=== PATIENT | female | born 1940 | race Caucasian/White ===

== ENCOUNTER 2018-08-29 20:40 | Emergency (ER) | payer MEDICARE, BC ==
[~2018-08-29] VITALS: Ht 160 cm; Wt 60.8 kg
[~2018-08-29 20:40] MED LIST: CALCIUM500 M3 PO; CARAFATE1 GM/10 ML PO; VIT B12 10001000 MCG GT; Z FISH OIL; Z.0.ALEVE220 M1 PO; Z.0.ALPRAZOLAM0.5 MG PO; Z.0.BABY ASPIRIN81 M PO; Z.0.IMITREX100 MG PO; Z.0.METOPROLOL SUC10 PO; Z.0.NEXIUM40 MG PO; Z.0.TOPROL XL50 MG; Z.0.XANAX0.5 MG; [UNRECOGNIZED DRUG - CODE] PO
--- OUTSIDE RECORDS SUMMARY | 2018-08-29 20:45 | XMS REPORT | Clinical Summary ---
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 Name Role Phone Asked, No Pcp PCP Unavailable Allergies No Known Allergies Medications No known medications Active Problems No known active problems Encounters Care Team Description Date Type Specialty Brian Jenkins MD Acute pain of right knee (Primary Dx); Status post right knee replacement 02/14/2018 Office Visit Orthopedic Surgery Zoey Ramos Right knee pain, unspecified chronicity (Primary Dx) 02/05/2018 Orders Only Orthopedic Surgery after 08/28/2017 Social History Date Tobacco Use Types Packs/Day Years Used Never Smoker Smokeless Tobacco: Never Used Sex Assigned at Date Recorded Not on file Industry Job Start Date Occupation Not on file Not on file Not on file Travel End Travel History Travel Start No recent travel history available. 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 Weight 60.8 kg (134 lb) 02/14/2018 8:44 AM OUTSIDE PRODUCTION INSPECTOR Height 162.6 cm (5' 4") 02/14/2018 8:44 AM OUTSIDE PRODUCTION INSPECTOR Body Mass Index 23 Plan of Treatment Health Maintenance Due Date Last Done Comments SHINGLES VACCINES (#1) 1988 65+ PNEUMOCOCCAL VACCINE 07/30/2003 (1 of 2 - PCV13) PNEUMOCOCCAL 07/30/2003 POLYSACCHARIDE VACCINE AGE 65 AND OVER INFLUENZA VACCINE 11/01/2018 Procedures Comments Procedure Name Priority Date/Time Associated Diagnosis XR KNEE 4+ VW RIGHT Routine 02/14/2018 Right knee pain, 8:47 AM OUTSIDE PRODUCTION INSPECTOR unspecified chronicity XR LEG LENGTH EVALUATION Routine 02/14/2018 Right knee pain, 8:47 AM OUTSIDE PRODUCTION INSPECTOR unspecified chronicity after 08/28/2017 Results * XR Knee 4+ Vw Right (02/14/2018 8:47 AM OUTSIDE PRODUCTION INSPECTOR) Specimen Narrative Performed At [facility] The x-rays demonstrate stable, cemented right knee arthroplasty. Components are well aligned. 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 Long-leg radiographs reveal generally neutral alignment of both extremities. Performing Organization Address [facility] Phone Number [facility] [address] [place] [address] * XR Leg Length Evaluation (02/14/2018 8:47 AM OUTSIDE PRODUCTION INSPECTOR) Specimen Narrative Performed At [facility] The x-rays demonstrate stable, cemented right knee arthroplasty. Components are well aligned. 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 Long-leg radiographs reveal generally neutral alignment of both extremities. Performing Organization Address [facility] Phone Number [facility] [address] [place] [address] after 08/28/2017 Insurance Type Payer Benefit Subscriber ID Effective Phone Address Plan / Dates Group Medicare MEDICARE MEDICARE xxxxxxxxxxx 2003-P ATH[place], PART A AND resent [place] B PPO BCBS BCBS xxxxxxxxxxxx 2003-P CHOICE resent PPO/JOSH YOUNG PPO Advance Directives Patient has advance care planning documents on file. For more information, sherry e contact: Nawaf Nixon [address] [place] [address]
--- OUTSIDE RECORDS SUMMARY | 2018-08-29 20:45 | XMS REPORT ---
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 Allergies, Adverse Reactions, Alerts Allergy Name Allergy Type Status Severity Reaction(s) Onset Date Inactive Date Treating Clinician Comments tetanus immune globulin DA Active U 2017-02-09 00:00:00 No Known Contrast Allergies DA Active U 2005-03-04 00:00:00 No Known Food Allergies DA Active U 2005-03-04 00:00:00 No Known Other Allergies DA Active U 2005-03-04 00:00:00 TETANUS DA Active U 2005-03-04 00:00:00 Medications This patient has no known medications. Results Test Description Test Time Test Comments Text Results Atomic Results Result Comments COMPREHENSIVE METABOLIC PANEL 2018-08-23 09:42:00 SODIUM (test code=NA) 138 mEq/L 134-147 POTASSIUM (test code=K) 4.2 mEq/L 3.4-5.0 CHLORIDE (test code=CL) 103 mEq/L 100-108 CARBON DIOXIDE (test code=CO2) 33 mEq/L 21-33 ANION GAP (test code=GAP) 6 0-20 GLUCOSE (test code=GLU) 92 mg/dL 70-110 BLOOD UREA NITROGEN (test code=BUN) 15 mg/dL 7-18 GLOMERULAR FILTRATION RATE (test code=GFR) 80.5 70-80 Units of measure=ml/min/1.73 m2 CREATININE (test code=CREAT) 0.7 mg/dL 0.6-1.3 TOTAL PROTEIN (test code=PROT) 7.3 g/dL 6.4-8.2 ALBUMIN (test code=ALB) 4.00 g/dL 3.4-5.0 CALCIUM (test code=CA) 9.1 mg/dL 8.0-10.5 BILIRUBIN TOTAL (test code=BILT) 1.40 mg/dL 0.0-1.0 SGOT/AST (test code=AST) 20 IUnit/L 15-37 SGPT/ALT (test code=ALT) 21 IUnit/L 15-65 ALKALINE PHOSPHATASE TOTAL (test code=ALKP) 59 IUnit/L 20-125 [id number] 09:42:00* Test Item Value Reference Range Comments LIPASE (test code=LIP) 124 IUnit/L 73-393 [id number] 09:42:00* Test Item Value Reference Range Comments MAGNESIUM (test code=MAG) 2.10 mg/dL 1.8-2.4 THYROID STIMULATING [id number] 09:42:00* Test Item Value Reference Range Comments THYROID STIMULATING HORMONE (test code=TSH) 3.06 0.42-5.47 Results in pablo-International Units/mL [id number] 09:42:00* Test Item Value Reference Range Comments TROPONIN-I (test code=TROPI) < 0.015 ng/mL 0.000-0.045 Negative: <=0.045 Positive: >=0.046 Correlation with serial results, other cardiac markers andclinical findings is necessary to determine the clinicalsignificance of this result. Results using different methodologies should not be comparedto one another as quantitative results may vary by method. - XR CHEST 1 [id number] 09:25:00 FAX: Feliberto Brooks DO [phone] [facility]: [facility]: [facility] FAX: oJse Conteh [phone] Name: S[facility] [place] : 1940 Age/S: 78/F [address] [place] [address] Unit #: [id number] Loc: [place] [address] Phys: Feliberto Garcia DO Acct: [id number] Dis Date: Status: REG ER PHONE #: [phone] Exam Date: 08/23/2018 09 FAX #: [phone] Reason: Abdominal Pain EXAMS: CPT CODE: [id number] XR CHEST 1 V [id number] CHEST 1 VIEW: 08/23/2018 COMPARISON: February 09, 2017 CLINICAL HISTORY: Abdominal Pain FINDINGS: The cardiovascular silhouette is normal in size. Severe scoliosis of the thoracolumbar spine is present. Assessment of the lungs is limited due to the severe scoliosis. No definite acute infiltrate is seen. No p neumothorax identified. Surgical clips noted in the left axilla. IMPRESSION: Limited study. No definite acute p ulmonary abnormality. at 0925 Reported and signed by: Chad Watson M.D. CC: Feliberto Garcia DO; Jose Ewing M.D. Technologist: ROBYN Freeman) Trnscrd Date/Time/By: 08/23/2018 ([id number]) : By: [email or web address] Orig Print D/T: S: 08/23/2018 ([id number]) PAGE 1 Signed R eport URINALYSIS [id number] 09:19:00* Test Item Value Reference Range Comments UA COLOR (test code=COLU) YELLOW YEL/STRAW UA APPEARANCE (test code=APPU) CLEAR CLEAR UA GLUCOSE DIPSTICK (test code=DGLUU) NEGATIVE NEGATIVE UA BILIRUBIN DIPSTICK (test code=BILU) NEGATIVE NEGATIVE UA KETONE DIPSTICK (test code=KETU) NEGATIVE NEGATIVE UA SPECIFIC GRAVITY (test code=SGU) 1.016 1.005-1.030 UA BLOOD DIPSTICK (test code=SCOT) NEGATIVE NEGATIVE UA PH DIPSTICK (test code=MAYELIN) 6.0 5.0-7.0 UA PROTEIN DIPSTICK (test code=PROU) NEGATIVE NEGATIVE UA UROBILINIOGEN DIPSTICK (test code=URO) 0.2 mg/dL 0.2-1.0 UA NITRITE DIPSTICK (test code=ZELDA) NEGATIVE NEGATIVE UA LEUKOCYTE ESTERASE DIPSTICK (test code=LEUU) NEGATIVE NEGATIVE UA WBC (test code=WBCU) 0-3 WBC/HPF 0-3 UA RBC (test code=RBCU) 4-10 RBC/HPF 0-3 UA BACTERIA (test code=BACU) NONE SEEN /HPF NONE SEEN UA SQUAMOUS CELLS (test code=SQU) 0-5 /HPF NONE SEEN UA MUCUS (test code=MUCU) TRACE /LPF NONE SEEN COMMENTS: Clean CatchCBC W/AUTO [id number] 09:18:00* Test Item Value Reference Range Comments WHITE BLOOD CELL (test code=WBC) 6.30 x10 3/uL 4.5-11.0 RED BLOOD CELL (test code=RBC) 4.84 x10 6/uL 3.54-5.02 HEMOGLOBIN (test code=HGB) 14.6 g/dL 11.0-15.0 HEMATOCRIT (test code=HCT) 44.8 % 33.0-45.0 MEAN CELL VOLUME (test code=MCV) 92.6 fL 81.0-99.0 MEAN CELL HGB (test code=MCH) 30.2 pg 27.0-33.0 MEAN CELL HGB CONCETRATION (test code=MCHC) 32.6 g/dL 33.0-37.0 RED CELL DISTRIBUTION WIDTH CV (test code=RDW) 13.1 % 11.5-14.5 RED CELL DISTRIBUTION WIDTH SD (test code=RDW-SD) 44.2 fL 37.0-54.0 PLATELET COUNT (test code=PLT) 249 x10 3/uL 150-400 MEAN PLATELET VOLUME (test code=MPV) 10.5 fL 7.0-9.0 NEUTROPHIL % (test code=NT%) 70.1 % 56.0-77.0 IMMATURE GRANULOCYTE % (test code=IG%) 0.2 % 0.0-2.0 LYMPHOCYTE % (test code=LY%) 20.2 % 14.0-32.0 MONOCYTE % (test code=MO%) 8.1 % 4.8-9.0 EOSINOPHIL % (test code=EO%) 1.1 % 0.3-3.7 BASOPHIL % (test code=BA%) 0.3 % 0.0-2.0 NUCLEATED RBC % (test code=NRBC%) 0.0 % 0-0 NEUTROPHIL # (test code=NT#) 4.42 x10 3/uL 2.0-7.6 IMMATURE GRANULOCYTE # (test code=IG#) 0.01 x10 3/uL 0.00-0.03 LYMPHOCYTE # (test code=LY#) 1.27 x10 3/uL 1.0-3.8 MONOCYTE # (test code=MO#) 0.51 x10 3/uL 0.1-0.8 EOSINOPHIL # (test code=EO#) 0.07 x10 3/uL 0.0-0.2 BASOPHIL # (test code=BA#) 0.02 x10 3/uL 0.0-0.2 NUCLEATED RBC # (test code=NRBC#) 0.00 x10 3/uL 0.0-0.1 MANUAL DIFF REQUIRED (test code=MDIFF) NO
[2018-08-30 00:10] VITALS: BP 134/62
[2018-08-30 00:15] LABS: BILIRUBIN,URINE NEGATIVE (NEGATIVE); CLARITY,URINE CLEAR (CLEAR); COLOR,URINE YELLOW (YELLOW); KETONES,URINE TRACE (NEGATIVE); LEUKOCYTE ESTERASE ,URINE TRACE (NEGATIVE); NITRITE,URINE NEGATIVE (NEGATIVE); PROTEIN,URINE DIPSTICK NEGATIVE (NEGATIVE); URINE UROBILINOGEN 1 mg/dL (0.2 - 1)
[2018-08-30 00:51] LABS: BACTERIA,URINE FEW /HPF; EPITHELIAL CELLS,URINE FEW /LPF; MUCUS,URINE MANY (RARE); WBC,URINE (MAN) 21-50 /HPF (0-5)
== END 2018-08-30 00:17 | disposition home or self-care (01) ==
LOC: ER 20:40
DX: R19.00 Intra-abdominal and pelvic swelling, mass and lump, unspecified site (principal); N30.91 Cystitis, unspecified with hematuria; I10 Essential (primary) hypertension; Z85.038 Personal history of other malignant neoplasm of large intestine; Z85.3 Personal history of malignant neoplasm of breast
CPT/HCPCS: 81001; 87086; 99282

== ENCOUNTER 2021-03-17 08:40 | Emergency (ER) | payer MEDICARE, BC ==
[~2021-03-17] VITALS: Ht 160 cm; Wt 60.8 kg
[2021-03-17] MEDS ORDERED: ONDANSETRON HCL 4 MG ORAL DISINTEGRATING TAB PO ONE (09:15)
[2021-03-17] MEDS ORDERED: CASIRIVIMAB/IMDEVIMAB 10 ML in SODIUM CHLORIDE 0.9% 100 ML IV ONE (10:30)
[2021-03-17 11:12] VITALS: BP 152/67
== END 2021-03-17 11:14 | disposition home or self-care (01) ==
LOC: ER 09:22
DX: U07.1 COVID-19 (principal); R05.9 Cough, unspecified; R11.0 Nausea; R10.9 Unspecified abdominal pain; I10 Essential (primary) hypertension; J44.9 Chronic obstructive pulmonary disease, unspecified; Z85.038 Personal history of other malignant neoplasm of large intestine; Z85.3 Personal history of malignant neoplasm of breast; Z87.19 Personal history of other diseases of the digestive system
CPT/HCPCS: 71045; 99283; J7050; Q0162; U0002